=== PATIENT | male | born 1980 | race African-American/Black ===

== ENCOUNTER 2025-03-18 08:27 | Emergency (ER) | payer MEDICAID ==
[~2025-03-18] VITALS: Ht 172.7 cm; Wt 74.0 kg
[2025-03-18 08:30] VITALS: O2SAT 100
[2025-03-18] MEDS: LEVETIRACETAM 1000MG PREMIX 100 ML IV NR (09:33)
[2025-03-18 09:37] LABS: BASOPHILS % 0.4 % (0.0-2.0); DIFFERENTIAL COMMENT 0; EOSINOPHILS % 0.5 % (0.0-5.0); HEMATOCRIT. 38.6 % (42.0-52.0); LYMPHOCYTES % 8.8 % (20.0-50.0); MEAN CORPUSCULAR HEMOGLOBIN 35.2 pg (28.0-32.0); MEAN CORPUSCULAR HGB CONC 33.8 g/dL (31.0-37.0); MEAN CORPUSCULAR VOLUME 104.3 fL (80.0-94.0); MEAN PLATELET VOLUME 9.5 fl (7.4-10.4); NEUTROPHILS % 84.3 % (40.0-76.0); PLATELET 138 x1000/uL (130-400); RED CELL DISTRIBUTION WIDTH 14.7 % (11.6-14.6); WHITE BLOOD COUNT 10.6 x1000/uL (4.5-11.0)
[2025-03-18 09:50] LABS: CHLORIDE 100 mEq/L (98-107); POTASSIUM 3.7 mEq/L (3.5-5.1); SODIUM 136 mEq/L (136-145)
[2025-03-18 09:51] LABS: CARBON DIOXIDE 27 mEq/L (21-32)
[2025-03-18 09:52] LABS: CALCIUM 9.4 mg/dL (8.7-10.4)
[2025-03-18 09:56] LABS: CREATININE 0.8 mg/dL (0.6-1.3); GLUCOSE 101 mg/dL (70-105); UREA NITROGEN BLOOD 8 mg/dL (9-23)
[2025-03-18 09:57] LABS: ETHANOL BLOOD < 10 mg/dL (<10)
[2025-03-18 12:59] VITALS: BP 116/72; PULSE 79; RESP 13; TEMP 37.2; O2SAT 98
== END 2025-03-18 13:23 | disposition home or self-care (01) ==
LOC: ER 08:27 → EDBD 08:27 → ER 13:23
DX: R56.9 Unspecified convulsions (principal); F10.20 Alcohol dependence, uncomplicated; F20.9 Schizophrenia, unspecified; Y90.9 Presence of alcohol in blood, level not specified
CPT/HCPCS: 80048; 80320; 85025; 36415; 96365; 99285; J1953; G0480